=== PATIENT | female | born 1955 | race Caucasian/White ===

== ENCOUNTER 2018-05-03 16:20 | Emergency (ER) | payer OTHER ==
[~2018-05-03] VITALS: Ht 584.7 cm; Wt 80.0 kg
[2018-05-03] MEDS ORDERED: diphenhydrAMINE 50 mg/ml inj IM ONE (16:40)
[2018-05-03] MEDS ORDERED: haloperidol lactate 5mg/ml inj IM ONE (16:40)
[2018-05-03] MEDS ORDERED: LORazepam 2 mg/ml vial IM ONE (16:40)
[2018-05-03 19:08] LABS: BASOPHILS % (AUTO) 0.3 % (0-1); EOSINOPHILS % (AUTO) 0.1 % (0-6); HEMATOCRIT 38.8 % (35.0-45.0); HEMOGLOBIN 13.6 g/dl (12.0-16.0); LYMPHOCYTES # (AUTO) 1.6 X10'3 (1.1-4.8); LYMPHOCYTES % (AUTO) 20.1 % (21-51); MEAN CORPUSCULAR HEMOGLOBIN 31.7 PG (27.0-31.0); MEAN CORPUSCULAR HGB CONC 35.1 % (33.0-36.5); MEAN CORPUSCULAR VOLUME 90.3 FL (78-98); MEAN PLATELET VOLUME 8.1 FL (7.4-10.4); MONOCYTES # (AUTO) 0.5 X10'3 (0-0.9); MONOCYTES % (AUTO) 5.9 % (2-12); NEUTROPHILS # (AUTO) 5.9 X10'3 (1.8-7.7); NEUTROPHILS % (AUTO) 73.6 % (42-75); PLATELET COUNT 228 X10'3 (140-440); WHITE BLOOD COUNT 8.1 X10'3 (4.5-11.0)
[2018-05-03 19:12] LABS: URINE HCG NEGATIVE (NEG)
[2018-05-03 19:22] LABS: CLARITY,URINE CLEAR (Clear); COLOR,URINE YELLOW (Yellow); GLUCOSE, URINE NEGATIVE (Neg); KETONES,URINE NEGATIVE (Neg); LEUKOCYTE ESTERASE ,URINE SMALL (Neg); NITRITES, URINE NEGATIVE (Neg); OCCULT BLOOD,URINE NEGATIVE (Neg); PH,URINE 5.5 (4.8-8.0); PROTEIN,URINE TRACE mg/dl (Neg); UROBILINOGEN,URINE 0.2 E.U/dL (0.2-1.0)
[2018-05-03 19:24] LABS: URINE AMPHETAMINE SCREEN NEGATIVE (Neg); URINE BARBITUATE SCREEN NEGATIVE (Neg); URINE BENZODIAZEPINES SCREEN POSITIVE (Neg); URINE CANNABINOID SCREEN NEGATIVE (Neg); URINE COCAINE SCREEN NEGATIVE (Neg); URINE METHADONE SCREEN NEGATIVE (Neg); URINE OPIATE SCREEN POSITIVE (Neg); URINE PHENCYCLIDINE SCREEN NEGATIVE (Neg)
[2018-05-03 19:24] LABS: ALANINE AMINOTRANSFERASE 51 U/L (12-78); ALBUMIN 3.9 G/DL (3.4-5.0); ALBUMIN/GLOBULIN RATIO 1.2 (1.1-1.5); ALKALINE PHOSPHATASE 61 IU/L (46-116); ANION GAP 10 (8-16); ASPARTATE AMINO TRANSFERASE 42 U/L (10-37); BILIRUBIN,TOTAL 0.2 MG/DL (0.1-1.0); BLOOD UREA NITROGEN 22 MG/DL (7-18); BUN/CREATININE RATIO 23.2 (6.6-38.0); CALCIUM 8.8 MG/DL (8.5-10.1); CHLORIDE 105 MMOL/L (99-107); CREATININE 0.95 MG/DL (0.40-0.90); GLUCOSE 123 MG/DL (70-104); POTASSIUM 3.9 MMOL/L (3.5-5.1); SODIUM 140 MMOL/L (135-145); TOTAL CARBON DIOXIDE 24.7 MMOL/L (24-32); TOTAL PROTEIN 7.1 G/DL (6.4-8.2); eGFR 60 ML/MIN
[2018-05-03 19:33] LABS: UA COLLECTION TYPE CLN CATCH MIDSTREAM
[2018-05-03 19:35] LABS: ACETAMINOPHEN < 2.0 UG/ML (10-30); ETHANOL < 0.010 GM/DL (0.0-0.010)
[2018-05-03 19:36] LABS: BACTERIA,URINE FEW /HPF (Neg); RBC,URINE NONE SEEN /HPF (0-2); SQUAMOUS EPITHELIAL CELL,UR FEW /LPF (FEW)
[2018-05-03 19:37] LABS: MUCUS STRANDS FEW /LPF (Neg)
[2018-05-03] MEDS ORDERED: HYDR12.5 PO (19:46)
[2018-05-03] MEDS ORDERED: VENL150T3 PO (19:46)
[2018-05-03] MEDS ORDERED: DIAZ5TAB4 PO (19:46)
[2018-05-03] MEDS ORDERED: CARB100T3 PO (19:46)
[2018-05-03] MEDS ORDERED: diazepam 5mg tablet PO PRN (20:30)
[2018-05-03] MEDS: venlafaxine XR 75mg capsule (Q24H) PO SCH (21:40)
[2018-05-04] MEDS: TEGRETOL PO SCH ×2 (08:00→20:00)
[2018-05-04] MEDS ORDERED: venlafaxine XR 75mg capsule (Q24H) PO SCH (08:40)
[2018-05-04] MEDS: HYDROchlorothiazide 12.5mg capsule PO SCH (09:16)
[2018-05-04] MEDS ORDERED: diazepam 5mg tablet PO ONE (13:00)
[2018-05-04] MEDS: carBAMazepine 100mg chewable tablet PO SCH (21:08)
[2018-05-04] MEDS: venlafaxine XR 75mg capsule (Q24H) PO SCH (21:08)
[2018-05-05 05:45] VITALS: BP 139/84
[2018-05-05] MEDS: carBAMazepine 100mg chewable tablet PO SCH ×2 (08:35→12:53)
[2018-05-05] MEDS: HYDROchlorothiazide 12.5mg capsule PO SCH (08:35)
== END 2018-05-05 15:26 ==
LOC: ER 16:21
DX: F29 Unspecified psychosis not due to a substance or known physiological condition (principal); Z79.899 Other long term (current) drug therapy
CPT/HCPCS: 36415; 80053; 80305; 80320; 80329; 81001; 81025; 84443; 85025; 96372; 99285; J1200; J1630; J2060

== ENCOUNTER 2018-05-14 08:09 | Emergency (ER) | payer OTHER ==
[~2018-05-14] VITALS: Ht 571.8 cm; Wt 86.4 kg
[~2018-05-14 08:09] MED LIST: CARB100T3 PO; DIAZ5TAB4 PO; HYDR12.5 PO; VENL150T3 PO
[2018-05-14 08:12] VITALS: BP 146/125
[2018-05-14 10:01] LABS: CLARITY,URINE CLEAR (Clear); COLOR,URINE YELLOW (Yellow); GLUCOSE, URINE NEGATIVE (Neg); KETONES,URINE NEGATIVE (Neg); LEUKOCYTE ESTERASE ,URINE NEGATIVE (Neg); NITRITES, URINE NEGATIVE (Neg); OCCULT BLOOD,URINE NEGATIVE (Neg); PROTEIN,URINE NEGATIVE (Neg); UROBILINOGEN,URINE 0.2 E.U/dL (0.2-1.0)
[2018-05-14 10:04] LABS: UA COLLECTION TYPE CLN CATCH MIDSTREAM
[2018-05-14] MEDS ORDERED: codeine/proMETHazine 5ml UD syrup PO ONE (10:20)
[2018-05-14] MEDS ORDERED: NAPR-56 PO (10:28)
[2018-05-14] MEDS ORDERED: BENZ-16 PO (10:28)
[2018-05-16] MEDS ORDERED: GUAI120015 PO (09:30)
[2018-05-16] MEDS ORDERED: AZIT-57 PO (09:30)
== END 2018-05-14 11:00 | disposition home or self-care (01) ==
LOC: ER 08:10
DX: R05 Cough (principal); M94.0 Chondrocostal junction syndrome [Tietze]; Z56.0 Unemployment, unspecified; Z88.0 Allergy status to penicillin; Z79.899 Other long term (current) drug therapy
CPT/HCPCS: 71045; 81003; 99285